=== PATIENT | female | born 1940 | race Caucasian/White ===

== ENCOUNTER → 2016-12-15 | Outpatient (CLI) | payer MEDICARE, BC ==
--- NOTE | 2016-12-16 08:40 | MM ---
Reason for exam: screening (asymptomatic). Last mammogram was performed 2 years and 1 month ago. History: Patient is postmenopausal and history of other cancer. Family history of breast cancer in sister at age 75. Physical Findings: A clinical breast exam by your physician is recommended on an annual basis and results should be correlated with mammographic findings. MG 3D Screening Mammo W/Cad Bilateral CC and MLO view(s) were taken. Prior study comparison: November 14, 2014, bilateral MG diagnostic mammo w CAD PATRICK. January 25, 2007, bilateral screening mammogram w/CAD. There are scattered fibroglandular densities. Finding: There is a 5 mm mass in the subareolar position of the right breast. ASSESSMENT: Incomplete: need additional imaging evaluation, BI-RAD 0 RECOMMENDATION: Special view mammogram of the right breast. If lesion persists on supplemental views, image directed ultrasound is recommended. [facility] will attempt to contact patient to return for supplemental views and ultrasound if indicated.
== END ==
LOC: RADMAMWWP 08:04
PROVIDERS: ATTEND Family Medicine
DX: Z12.31 Encounter for screening mammogram for malignant neoplasm of breast (principal)
CPT/HCPCS: 77063; G0202

== ENCOUNTER → 2016-12-17 | Outpatient (CLI) | payer MEDICARE, BC ==
--- NOTE | 2016-12-17 09:39 | MM ---
Reason for exam: additional evaluation requested from abnormal screening. Last mammogram was performed less than 1 month ago. History: Patient is postmenopausal and has history of other cancer at age 73. Family history of breast cancer in sister at age 75. Physical Findings: Nurse did not find any significant physical abnormalities on exam. MG 3D Work Up W/Cad RT Spot compression CC, spot compression MLO, and ML view(s) were taken of the right breast. Prior study comparison: December 15, 2016, bilateral MG 3d screening mammo w/cad. November 14, 2014, bilateral MG diagnostic mammo w CAD PATRICK. There are scattered fibroglandular densities. There is a persistent 3mm mass in the right breast lower outer quadrant. These results were verbally communicated with the patient and result sheet given to the patient on 12/17/16. ASSESSMENT: Incomplete: need additional imaging evaluation, BI-RAD 0 RECOMMENDATION: Ultrasound of the right breast.
--- NOTE | 2016-12-17 09:41 | USB ---
Reason for exam: additional evaluation requested from abnormal screening. History: Patient is postmenopausal and has history of other cancer at age 73. Family history of breast cancer in sister at age 75. US Breast Workup Limited RT Right breast ultrasound demonstrates a 0.2 x 0.3 x 0.2cm oval lesion too small to characterize at 10 o'clock. May represent small cyst, well defined posterior wall. Question posterior enhancement. These results were verbally communicated with the patient and result sheet given to the patient on 12/17/16. ASSESSMENT: Probably benign, BI-RAD 3 RECOMMENDATION: Ultrasound of the right breast in 6 months.
== END ==
LOC: RADMAMWWP 08:03
PROVIDERS: ATTEND Family Medicine
DX: R92.8 Other abnormal and inconclusive findings on diagnostic imaging of breast (principal)
CPT/HCPCS: 76642; G0206; G0279

== ENCOUNTER → 2018-01-07 | Outpatient (CLI) | payer MEDICARE, BC ==
--- NOTE | 2018-01-07 15:05 | MM ---
Reason for exam: additional evaluation requested from prior study. Last mammogram was performed 1 year and 1 month ago. History: Patient is postmenopausal and has history of other cancer at age 73. Family history of breast cancer in sister at age 75. Physical Findings: Nurse did not find any significant physical abnormalities on exam. MG 3D Diag Mammo W/Cad PATRICK Bilateral CC and MLO view(s) were taken. Prior study comparison: December 17, 2016, right breast MG 3d work up w/cad RT. December 15, 2016, bilateral MG 3d screening mammo w/cad. The breast tissue is heterogeneously dense. This may lower the sensitivity of mammography. There are benign appearing round calcifications bilaterally. There is chronic nodularity in the right breast. There is no discrete abnormality. These results were verbally communicated with the patient and result sheet given to the patient on 01/07/18. ASSESSMENT: Benign, BI-RAD 2 RECOMMENDATION: Routine screening mammogram of both breasts in 1 year.
== END | disposition home or self-care (01) ==
LOC: RADMAMWWP 13:16
PROVIDERS: ATTEND Physician Assistant
DX: R92.8 Other abnormal and inconclusive findings on diagnostic imaging of breast (principal)
CPT/HCPCS: 77066; G0279; 77062

== ENCOUNTER 2018-03-17 18:20 | Emergency (ER) | payer MEDICARE, BC ==
[2018-03-17] MEDS ORDERED: MORPHINE SULFATE 4 MG/ML SYRINGE IVP STA (19:09)
[2018-03-17] MEDS ORDERED: RX INFO: IV CONTRAST WAS GIVEN 1 EACH MISC MISCELLANE PRN (19:09)
[2018-03-17] MEDS ORDERED: ONDANSETRON 4 MG/2 ML VIAL IVP STA (19:09)
[2018-03-17 19:58] LABS: Basophils % (A) 0 %; Eosinophils # (A) 0.1 k/uL (0-0.7); Eosinophils % (A) 1 %; HCT 41.9 % (34.0-46.0); HGB 13.7 gm/dL (11.4-16.0); Lymphocytes # (A) 1.4 k/uL (1.0-4.8); Lymphocytes % (A) 12 %; MCH 31.1 pg (25.0-35.0); MCHC 32.7 g/dL (31.0-37.0); MCV 94.9 fL (80.0-100.0); Mean Platelet Volume 7.1; Monocytes # (A) 0.4 k/uL (0-1.0); Monocytes % (A) 3 %; Neutrophils # (A) 9.8 k/uL (1.3-7.7); Neutrophils % (A) 84 %; Platelet Count 272 k/uL (150-450); RBC 4.41 m/uL (3.80-5.40); RDW 12.8 % (11.5-15.5); WBC 11.7 k/uL (3.8-10.6)
--- NOTE | 2018-03-17 20:02 | ED ---
Extremity Problem HPI - General Source: patient, EMS Mode of arrival: EMS Limitations: no limitations <Dana Carballo - Last Filed: 03/17/18 22:28> <Kike Fernandes - Last Filed: 03/17/18 23:09> - General Chief complaint: Extremity Problem,Nontraumatic Stated complaint: Leg pain Time Seen by Provider: 03/17/18 18:42 - History of Present Illness Initial comments: 77-year-old female patient presents to the emergency department today for evaluation of right leg pain and paresthesia. Patient states that she was sitting on for about 30 minutes when she went to stand up today she had severe pain to the right foot and numbness and tingling sensation. Patient denies any history of similar symptoms. Patient states that she does have some discomfort into her thigh radiating down the leg to the foot. States that she has decreased sensation to the foot with this. She denies any known injury. Denies any back pain or history of sciatica. Denies any cough, nasal congestion , sore throat, abdominal pain, nausea, or vomiting. Denies any chest pain or shortness of breath. Patient denies any recent rash, dizziness, weakness, hematuria, dysuria, urinary urgency, urinary frequency, headache, visual changes , or any other complaints. (Dana Carballo) - Related Data Home Medications Medication Instructions Recorded Confirmed Aspirin EC [Ecotrin Low Dose] 81 mg PO DAILY 03/17/18 03/17/18 Atenolol/Chlorthalidone 1 tab PO DAILY 03/17/18 03/17/18 [Atenolol-Chlorthalidone 50-25] Ranitidine HCl 150 mg PO DAILY 03/17/18 03/17/18 Vitamin B With C(Unknown) 1 tab PO DAILY 03/17/18 03/17/18 Vitamin D(Unknown) 1 tab PO DAILY 03/17/18 03/17/18 amLODIPine BESYLATE/BENAZEPRIL 1 cap PO HS 03/17/18 03/17/18 [Lotrel 5-20 mg Capsule] Allergies Allergy/AdvReac Type Severity Reaction Status Date / Time No Known Allergies Allergy Verified 03/17/18 19:55 Review of Systems ROS Other: All systems not noted in ROS Statement are negative. <Dana Carballo - Last Filed: 03/17/18 22:28> ROS Other: All systems not noted in ROS Statement are negative. <Kike Fernandes - Last Filed: 03/17/18 23:09> ROS Statement: Those systems with pertinent positive or pertinent negative responses have been documented in the HPI. Past Medical History Past Medical History: GERD/Reflux, Hypertension History of Any Multi-Drug Resistant Organisms: None Reported Past Surgical History: Appendectomy, Cholecystectomy Past Psychological History: Depression Smoking Status: Never smoker Past Alcohol Use History: Rare Past Drug Use History: None Reported <Dana Carballo - Last Filed: 03/17/18 22:28> General Exam Limitations: no limitations General appearance: alert, in no apparent distress, other (This is a well- developed, well-nourished elderly female patient in mild distress related to pain. Vital signs upon presentation are temperature 100.0F, pulse 110, respirations 20, blood pressure 197/99, pulse ox 94% on room air.) Eye exam: Present: normal appearance, PERRL, EOMI. Absent: scleral icterus, conjunctival injection, periorbital swelling ENT exam: Present: normal exam, normal oropharynx, mucous membranes moist Respiratory exam: Present: wheezes (Diffuse expiratory wheezing). Absent: normal lung sounds bilaterally, respiratory distress, rales, rhonchi, stridor Cardiovascular Exam: Present: normal rhythm, tachycardia, normal heart sounds. Absent: systolic murmur, diastolic murmur, rubs, gallop, clicks GI/Abdominal exam: Present: soft, normal bowel sounds. Absent: distended, tenderness, guarding, rebound, rigid Extremities exam: Present: full ROM, normal capillary refill, other (Patient has pale, cold foot and lower extremity. Unable to palpate pedal and posttibial pulses are right foot. Unable to find pulses on Doppler.). Absent: normal inspection, tenderness, pedal edema, joint swelling, calf tenderness Neurological exam: Present: alert, oriented X3, CN II-XII intact Psychiatric exam: Present: normal affect, normal mood Skin exam: Present: warm, dry, intact, normal color. Absent: rash <Dana Carballo - Last Filed: 03/17/18 22:28> Course <Dana Carballo - Last Filed: 03/17/18 22:28> <Kike Fernandes - Last Filed: 03/17/18 23:09> Vital Signs 03/17/18 03/17/18 03/17/18 18:24 20:12 20:30 Temperature 100 F H Pulse Rate 110 H 113 H Respiratory 20 11 L Rate Blood Pressure 197/99 168/79 168/79 O2 Sat by Pulse 94 L 96 Oximetry 03/17/18 03/17/18 03/17/18 21:00 21:43 22:00 Temperature 98.1 F Pulse Rate 112 H 130 H Respiratory 13 17 Rate Blood Pressure 173/70 158/87 O2 Sat by Pulse 93 L 97 Oximetry 03/17/18 22:30 Temperature Pulse Rate 128 H Respiratory 21 Rate Blood Pressure 148/73 O2 Sat by Pulse 96 Oximetry - Reevaluation(s) Reevaluation #1: 03/17/18 21:59 I saw this patient in conjunction with the physician administrative assistant. I performed independent history and physical exam. Agree with case management. I did go and evaluate the patient following computed tomography scan and the nurse practitioner did accompany me. The patient's foot does appear to be somewhat improved from the initial exam, color is better and the patient has sensation and is able to move her toes. The pulse is still not palpated in the dorsalis pedis. Vascular surgeon is paged. Heparin started. (Kike Fernandes) Medical Decision Making - Lab Data Result diagrams: 03/17/18 19:42 03/17/18 19:42 - Radiology Data Radiology results: report reviewed, image reviewed <Dana Carballo - Last Filed: 03/17/18 22:28> - Lab Data Result diagrams: 03/17/18 19:42 03/17/18 19:42 <Kike Fernandes - Last Filed: 03/17/18 23:09> - Medical Decision Making 77-year-old female patient presents to the emergency department today for evaluation of right leg pain and foot numbness. Physical examination did reveal a pale cold foot with nonpalpable pulses. Was unable to find pulses by Doppler. Labs reviewed and were unremarkable. Patient was also found to be in new-onset atrial fibrillation with a heart rate of 114 on EKG however via telemetry heart rates, been to 130s. Patient was started on high-dose heparin. She started on Cardizem. She was given pain medication and does report improvement of symptoms upon reevaluation. My attending Dr. Fernandes was in to evaluate the patient. He discussed the case with the on-call vascular surgeon who recommends transfer to [facility]. (Dana Carballo) I saw this patient in conjunction with the physician administrative assistant. I performed independent history and physical exam. Agree with case management. Case discussed with Dr. House. As the patient has multiple levels of disease, she appears to require higher level of care. Dr. House I discussed the case with Dr. Davila at [facility] who will accept, and I discussed with the emergency department physician Dr. Watson. (Kike Fernandes) - Lab Data Lab Results 03/17/18 03/17/18 Range/Units 19:42 19:42 WBC 11.7 H (3.8-10.6) k/uL RBC 4.41 (3.80-5.40) m/uL Hgb 13.7 (11.4-16.0) gm/dL Hct 41.9 (34.0-46.0) % MCV 94.9 (80.0-100.0) fL MCH 31.1 (25.0-35.0) pg MCHC 32.7 (31.0-37.0) g/dL RDW 12.8 (11.5-15.5) % Plt Count 272 (150-450) k/uL Neutrophils % 84 % Lymphocytes % 12 % Monocytes % 3 % Eosinophils % 1 % Basophils % 0 % Neutrophils # 9.8 H (1.3-7.7) k/uL Lymphocytes # 1.4 (1.0-4.8) k/uL Monocytes # 0.4 (0-1.0) k/uL Eosinophils # 0.1 (0-0.7) k/uL Basophils # 0.0 (0-0.2) k/uL Sodium 140 (137-145) mmol/L Potassium 3.4 L (3.5-5.1) mmol/L Chloride 104 (98-107) mmol/L Carbon Dioxide 26 (22-30) mmol/L Anion Gap 10 mmol/L BUN 31 H (7-17) mg/dL Creatinine 0.99 (0.52-1.04) mg/dL Est GFR (CKD-EPI)AfAm 64 (>60 ml/min/1.73 sqM) Est GFR (CKD-EPI)NonAf 55 (>60 ml/min/1.73 sqM) Glucose 234 H (74-99) mg/dL Calcium 9.7 (8.4-10.2) mg/dL Magnesium 1.6 (1.6-2.3) mg/dL Total Bilirubin 0.4 (0.2-1.3) mg/dL AST 23 (14-36) U/L ALT 31 (9-52) U/L Alkaline Phosphatase 78 (38-126) U/L Total Protein 7.1 (6.3-8.2) g/dL Albumin 4.4 (3.5-5.0) g/dL TSH 4.110 (0.465-4.680) mIU/L - EKG Data EKG Comments: EKG obtained at 2000 shows atrial fibrillation with rapid ventricular response. Ventricular rate is 114, QRS duration is 68, QT 342, QTc 471. No evidence of ST elevation or depression (Dana Carballo) - Radiology Data CT angio right lower extremity was obtained. Report was reviewed in its entirety. Impression by Dr. Davidson shows to Center segment of subtotal occlusion of the proximal right femoral artery also involving the profunda femoris artery origin. Complete occlusion of the mid popliteal artery and proximal tibial artery. Diminished arterial flow and anterior tibial artery no lower leg. Two-view x-ray of the chest is obtained. There is no heart failure. There is worsening of the interstitial markings. There is no pleural effusion. There are chest leads. This no gross heart failure. Coarse lung markings without overt heart failure. There is probably cardiomegaly after Stuart (Dana Carballo) Disposition - Out of Hospital Transfer - Req. Specs Out of Hospital Transfer - Requested Specifics: Other Emergency Center ([facility]) <Dana Carballo - Last Filed: 03/17/18 22:28> <Kike Fernandes - Last Filed: 03/17/18 23:09> Clinical Impression: Arterial occlusion, lower extremity Narrative: Right (Dana Carballo) Disposition: OTHER INSTITUTION NOT DEFINED Condition: Serious Referrals: Rayo Banerjee MD [Primary Care Provider] - 1-2 days
[2018-03-17 20:08] LABS: Albumin 4.4 g/dL (3.5-5.0); Calcium 9.7 mg/dL (8.4-10.2); Potassium 3.4 mmol/L (3.5-5.1); Total Bilirubin 0.4 mg/dL (0.2-1.3); Total Protein 7.1 g/dL (6.3-8.2)
[2018-03-17 20:20] LABS: Magnesium 1.6 mg/dL (1.6-2.3)
[2018-03-17] MEDS ORDERED: DILTIAZEM 50 MG in SODIUM CHLORIDE 0.9% 40 ML IV SCH (20:30)
--- NOTE | 2018-03-17 21:23 | CT ---
EXAMINATION TYPE: CT angio lower extremity RT DATE OF EXAM: 03/17/2018 8:58 PM COMPARISON: HISTORY: right lower leg pain and numbness CT DLP: 1242.7 mGycm Automated exposure control for dose reduction was used. TECHNIQUE: Performed with IV Contrast, patient injected with 125 mL of Isovue 370. . Multiple axial sections were obtained from the diaphragm to the bottom of the right foot with intrave nous contrast. There are 3-D post processed images. FINDINGS: The abdominal aorta has normal size and contour. There is no evidence of abdominal aortic aneurysm or dissection. There is mild pleural reaction and atelectasis at the right lung base. There is small hi atal hernia. There is patency of the celiac artery and superior mesenteric artery. There is patency of the renal a rteries. There is patency of the iliac arteries. There is a 2 cm segment of subtotal occlusion of the proximal right femoral artery. The remainder of the right femoral artery is patent. There is complet e occlusion of the popliteal artery at the level of the femoral condyles. There are collateral vessel s and contrast opacification of the right tibial artery. There is patency of the anterior and posteri or tibial arteries and the peroneal artery. There is posterior tibial artery flow at the right ankle. I see no significant flow in the anterior tibial artery at the ankle. IMPRESSION: 2 CM SEGMENT OF SUBTOTAL OCCLUSION OF THE PROXIMAL RIGHT FEMORAL ARTERY ALSO INVOLVING THE PROFUNDA F EMORIS ARTERY ORIGIN. COMPLETE OCCLUSION OF THE MID POPLITEAL ARTERY AND PROXIMAL TIBIAL ARTERY. DIMINISHED ARTERIAL FLOW IN THE ANTERIOR TIBIAL ARTERY IN THE LOWER LEG.
--- NOTE | 2018-03-17 21:39 | XR ---
EXAMINATION TYPE: XR chest 2V DATE OF EXAM: 03/17/2018 COMPARISON: NONE HISTORY: Leg numbness TECHNIQUE: Frontal and lateral views of the chest are obtained. FINDINGS: There is no heart failure. There is coarsening of the interstitial markings. There is no p leural effusion. There are chest leads. There is no gross heart failure. IMPRESSION: Coarse lung markings without overt heart failure. There is probably mild cardiomegaly.
[2018-03-17 21:44] VITALS: TEMP 98.1
[2018-03-17] MEDS ORDERED: HEPARIN SODIUM,PORCINE 5,000 UNIT/ML 1 ML VIAL IV PRN (22:26)
[2018-03-17] MEDS ORDERED: HEPARIN SODIUM,PORCINE 5,000 UNIT/ML 1 ML VIAL IV ONE (22:26)
[2018-03-17] MEDS ORDERED: DILTIAZEM DRIP BOLUS FROM BAG 1 MG SOLN IV ONE (22:27)
[2018-03-17] MEDS ORDERED: HEPARIN SOD,PORK IN 0.45% NACL 25,000 UNIT in 0.45% NACL 1 250ML.BAG IV SCH (22:30)
[2018-03-17 23:08] VITALS: BP 149/80; PULSE 85; RESP 23
== END 2018-03-17 23:41 | disposition other institution (70) ==
LOC: EC 18:20
DX: I70.201 Unspecified atherosclerosis of native arteries of extremities, right leg (principal); I48.91 Unspecified atrial fibrillation; K21.9 Gastro-esophageal reflux disease without esophagitis; I10 Essential (primary) hypertension; Z79.82 Long term (current) use of aspirin; Z79.899 Other long term (current) drug therapy
CPT/HCPCS: 36415; 93005; 80053; 84443; 83735; 85025; 87040; 71046; 73706; 99285; 96365; 96366 ×2; 96368; 96375 ×2; 96376 ×2; J2270; J1644 ×2; J2405; Q9967

== ENCOUNTER → 2018-04-27 | Outpatient (CLI) | payer MEDICARE, BC ==
--- NOTE | 2018-04-27 16:10 | CT ---
EXAMINATION TYPE: CT brain wo/w con DATE OF EXAM: 04/27/2018 COMPARISON: None HISTORY: 77-year-old female with dysarthria and anarthria, confusion, slurred speech TECHNIQUE: Examination was done in axial plane without intravenous contrast. Coronal and sagittal r econstructions performed. CT DLP: 2143 mGycm Automated exposure control for dose reduction was used. FINDINGS: There is no evidence of acute intracranial hemorrhage, acute ischemic changes, mass, mass-effect, or extra-axial fluid collection. There is no effacement of cerebral sulci or basal subarachnoid cister ns. There is no hydrocephalus. There is no midline shift. Waters-white matter distinction is preserv ed. [id number] cerebral cortical atrophy. Prominent prostatic calcifications in the carotid siphons . Postcontrast series shows no enhancing intracranial lesions. Dural venous sinuses are patent. There s eems to be persistent origin of the right posterior cerebral artery. Orbits and globes are intact. Leftward nasal septal deviation. Paranasal sinuses and mastoid air cell s are pneumatized. 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 No acute intracranial abnormality or enhancing intracrani al lesions seen.
== END | disposition home or self-care (01) ==
LOC: RADCTMAIN 14:20
PROVIDERS: ATTEND Family Medicine
DX: G31.9 Degenerative disease of nervous system, unspecified (principal)
CPT/HCPCS: 82565; 84520; 70470; 36415; Q9967

== ENCOUNTER 2020-03-12 08:56 | Emergency (ER) | payer BC, MEDICARE ==
[2020-03-12 09:04] VITALS: TEMP 98.4
--- NOTE | 2020-03-12 09:37 | ED ---
General Adult HPI - General Chief complaint: Extremity Problem,Nontraumatic Stated complaint: Difficulty Walking Time Seen by Provider: 03/12/20 09:08 Source: patient, RN notes reviewed Mode of arrival: wheelchair Limitations: no limitations - History of Present Illness Initial comments: Patient is a 79-year-old female presented to the emergency room today with a chief complaint of pain to the right ankle. She does with that started approximately 2 weeks ago. She does admit that it's worse when she tries to bear weight and weight. Denies any injury or trauma. Admits to history of a DVT in the past is currently on Eliquis. States he was asleep and was affect. Patient does admit that she went to the hospital approximately one week ago had an ultrasound obtained which was negative. Patient states she still expressing pain and discomfort to the lateral aspect of the right ankle area. Denies any swelling, redness. She denies any known injury. Denies any other concerning symptoms. Patient denies any recent fever, chills, shortness of breath, chest pain, back pain, abdominal pain, nausea or vomiting,headaches or visual changes, or any other complaints. - Related Data Home Medications Medication Instructions Recorded Confirmed Aspirin EC [Ecotrin Low Dose] 81 mg PO DAILY 03/17/18 03/17/18 Atenolol/Chlorthalidone 1 tab PO DAILY 03/17/18 03/17/18 [Atenolol-Chlorthalidone 50-25] Ranitidine HCl 150 mg PO DAILY 03/17/18 03/17/18 Vitamin B With C(Unknown) 1 tab PO DAILY 03/17/18 03/17/18 Vitamin D(Unknown) 1 tab PO DAILY 03/17/18 03/17/18 amLODIPine BESYLATE/BENAZEPRIL 1 cap PO HS 03/17/18 03/17/18 [Lotrel 5-20 mg Capsule] Allergies Allergy/AdvReac Type Severity Reaction Status Date / Time amlodipine Allergy Unknown Verified 03/12/20 09:06 benazepril Allergy Unknown Verified 03/12/20 09:06 terazosin Allergy Unknown Verified 03/12/20 09:06 Review of Systems ROS Statement: Those systems with pertinent positive or pertinent negative responses have been documented in the HPI. ROS Other: All systems not noted in ROS Statement are negative. Past Medical History Past Medical History: Diabetes Mellitus, Deep Vein Thrombosis (DVT), GERD/Reflux, Hypertension History of Any Multi-Drug Resistant Organisms: None Reported Past Surgical History: Appendectomy, Cholecystectomy Past Psychological History: Depression Smoking Status: Never smoker Past Alcohol Use History: Rare Past Drug Use History: None Reported General Exam - General Exam Comments Initial Comments: General: The patient is awake and alert, in no distress, and does not appear acutely ill. Eye: extra-ocular movements are intact. No nystagmus. There is normal conjunctiva bilaterally. No signs of icterus. Cardiovascular: There is a regular rate and rhythm. No murmur, rub or gallop is appreciated. Respiratory: Lungs are clear to auscultation, respirations are non-labored, breath sounds are equal. No wheezes, stridor, rales, or rhonchi. Musculoskeletal: Patient has normal appearance of her lower leg with no obvious deformity. No redness or swelling. Pulses 2+. Sensations are intact. Minimal to no tenderness on palpation to the lateral aspect of the right ankle and foot area. Shows good range of motion and all areas. Strength is 5/5. Neurological: A&O x 3. CN II-XII intact, There are no obvious motor or sensory deficits. Coordination appears grossly intact. Speech is normal. Skin: Skin is warm and dry and no rashes or lesions are noted. Psychiatric: Cooperative, appropriate mood & affect, normal judgment. Limitations: no limitations Course Vital Signs 03/12/20 08:57 Temperature 98.4 F Pulse Rate 98 Respiratory 16 Rate Blood Pressure 153/75 O2 Sat by Pulse 98 Oximetry Medical Decision Making - Medical Decision Making Patient is x-ray was reviewed is sugar acute fracture dislocation. Did show possible ligamentous injury. Patient ultrasound is negative for any acute DVT. Results were discussed with patient. Patient given Yves wrap in emergency room and advised to follow-up with orthopedics. Advised to continue to ice elevate the affected area and use Tylenol for pain. Advised return if any symptoms increase or worsen or for any other concerns. She states understanding and is agreement. Disposition Clinical Impression: Ankle pain, right Disposition: HOME SELF-CARE Condition: Stable Additional Instructions: Please continue ice elevate the affected area and use Yves wrap when up moving around. Please do not sleep with Yves wrap on. Follow-up orthopedics over the next 2-5 days. Return here to emergency room for any symptoms increase or worsen or fail concerns. Is patient prescribed a controlled substance at d/c from ED?: No Referrals: Rayo Banerjee MD [Primary Care Provider] - 1-2 days Stanislav Porter MD [Medical Doctor] - 1-2 days Time of Disposition: 10:51
--- NOTE | 2020-03-12 09:38 | XR ---
EXAMINATION TYPE: XR ankle complete RT DATE OF EXAM: 03/12/2020 CLINICAL HISTORY: Pain. TECHNIQUE: Frontal, lateral and oblique images of the right ankle are obtained. COMPARISON: None. FINDINGS: There is no acute fracture/dislocation evident in the right ankle. Mild spurring from the medial and lateral malleoli. The ankle mortise shows asymmetry with lateral widening suggesting poss ible ligamentous injury. Small to moderate size inferior calcaneal spur noted. The overlying soft ti ssue appears unremarkable. IMPRESSION: As above.
--- NOTE | 2020-03-12 10:18 | US ---
EXAMINATION TYPE: US venous doppler duplex LE RT DATE OF EXAM: 03/12/2020 10:12 AM COMPARISON: NONE CLINICAL HISTORY: pain. Right leg pain x couple weeks, history of DVT, patient on 2 blood thinners. SIDE PERFORMED: Right TECHNIQUE: The lower extremity deep venous system is examined utilizing real time linear array sonog kathya with graded compression, doppler sonography and color-flow sonography. VESSELS IMAGED: Common Femoral Vein Deep Femoral Vein Greater Saphenous Vein * Femoral Vein Popliteal Vein Small Saphenous Vein * Proximal Calf Veins (* superficial vessels) Right Leg: Appears negative for DVT Grayscale, color doppler, spectral doppler imaging performed of the deep veins of the right lower ext remity. There is normal flow, compressibility, vascular waveforms. IMPRESSION: No ultrasound evidence for acute DVT in the right lower extremity.
[2020-03-12 11:16] VITALS: BP 147/69; PULSE 88; RESP 18
== END 2020-03-12 11:20 | disposition home or self-care (01) ==
LOC: EC 08:56
DX: M25.571 Pain in right ankle and joints of right foot (principal); R26.2 Difficulty in walking, not elsewhere classified; K21.9 Gastro-esophageal reflux disease without esophagitis; I10 Essential (primary) hypertension; Z79.82 Long term (current) use of aspirin; Z79.01 Long term (current) use of anticoagulants; Z79.899 Other long term (current) drug therapy; Z88.8 Allergy status to other drugs, medicaments and biological substances; Z86.718 Personal history of other venous thrombosis and embolism
CPT/HCPCS: 99284

== ENCOUNTER → 2020-05-11 | Outpatient (CLI) | payer MEDICARE ==
--- NOTE | 2020-05-11 19:18 | NM ---
EXAMINATION TYPE: NM bone scan whole body DATE OF EXAM: 05/11/2020 COMPARISON: NONE HISTORY: Right tibia and fibula pain for 3 months Delayed whole-body scanning was performed following the injection of 23.2 mCi Tc 99m MDP. Images acq uired 3 hours post injection. FINDINGS: Abnormal uptake is seen involving the distal right tibia and within the feet and toes bilat erally. Normal uptake involving the knees is seen bilaterally. 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 In tensities of mild uptake involving these structures. Abnormal uptake involving the sternoclavicular joints and shoulders bilaterally likely post arthritic . Abnormal uptake involving the thoracic spine and lower lumbar spine nonspecific but likely degenerati ve IMPRESSION: 1. Abnormal uptake involving the distal right tibia is a faint or mild uptake in likely chronic relat ed to previous trauma or post arthritic. 2. 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 3. Findings involving the vertebral column likely degenerative.
== END | disposition home or self-care (01) ==
LOC: RADNMMAIN 10:26
PROVIDERS: ATTEND Family Medicine
DX: R93.7 Abnormal findings on diagnostic imaging of other parts of musculoskeletal system (principal); M89.8X9 Other specified disorders of bone, unspecified site
CPT/HCPCS: 78306; A9503

== ENCOUNTER 2024-07-05 08:29 | Observation (INO) | payer MEDICARE ==
--- NOTE | 2024-07-05 09:04 | ED ---
General Adult HPI - General Chief complaint: Headache Stated complaint: confusion,SOB Time Seen by Provider: 07/05/24 08:41 Source: patient Mode of arrival: wheelchair Limitations: no limitations - History of Present Illness Initial comments: Dictation was produced using [employer] dictation software. please excuse any grammatical, word or spelling errors. Chief Complaint: 83-year-old female presents with hypertension History of Present Illness: 83-year-old female presents to the emergency department chief complaint of hypertension. Patient states that she has been feeling this way for the last week or so. She checked her blood pressure this morning with elevated blood pressures with systolics above 200. She states that she had some of her blood pressure medications adjusted recently. For the past 3 to 4 weeks she has had a slight headache. She does report a history of migraines. Denies any chest pain shortness of breath. No extremity pain. Patient takes anticoagulation medication for DVT prophylaxis. She denies any cardiac conditions. The ROS documented in this emergency department record has been reviewed and confirmed by me. Those systems with pertinent positive or negative responses have been documented in the HPI. All other systems are other negative and/or noncontributory. - Related Data Home Medications Medication Instructions Recorded Confirmed Apixaban [Eliquis] 5 mg PO BID 07/05/24 07/05/24 Escitalopram [Lexapro] 10 mg PO DAILY 07/05/24 07/05/24 Metoprolol Tartrate [Lopressor] 100 mg PO BID 07/05/24 07/05/24 allopurinoL 100 mg PO DAILY 07/05/24 07/05/24 amLODIPine/ATORVASTATIN 1 tab PO DAILY 07/05/24 07/05/24 [amLODIPine/ATORVASTATIN 5-40 MG] metFORMIN HCL 500 mg PO BID 07/05/24 07/05/24 traZODone HCL [Desyrel] 25 mg PO HS 07/05/24 07/05/24 Allergies Allergy/AdvReac Type Severity Reaction Status Date / Time amlodipine Allergy Unknown Verified 07/05/24 08:36 benazepril Allergy Unknown Verified 07/05/24 08:36 terazosin Allergy Unknown Verified 07/05/24 08:36 Review of Systems ROS Statement: Those systems with pertinent positive or pertinent negative responses have been documented in the HPI. ROS Other: All systems not noted in ROS Statement are negative. Past Medical History Past Medical History: Diabetes Mellitus, Deep Vein Thrombosis (DVT), GERD/Reflux, Hypertension History of Any Multi-Drug Resistant Organisms: None Reported Past Surgical History: Appendectomy, Cholecystectomy Past Psychological History: Depression Smoking Status: Never smoker Past Alcohol Use History: Rare Past Drug Use History: None Reported General Exam - General Exam Comments Initial Comments: PHYSICAL EXAM: General Impression: Alert and oriented x3, not in acute distress HEENT: Normocephalic atraumatic, extra-ocular movements intact, pupils equal and reactive to light bilaterally, mucous membranes moist. Cardiovascular: Irregularly irregular Chest: Able to complete full sentences, no retractions, no tachypnea Abdomen: abdomen soft, non-tender, non-distended, no organomegaly Musculoskeletal: Pulses present and equal in all extremities, no peripheral edema Motor: no focal deficits noted Neurological: CN II-XII grossly intact, no focal motor or sensory deficits noted Skin: Intact with no visualized rashes Psych: Normal affect and mood Limitations: no limitations Course Vital Signs 07/05/24 08:33 Temperature 97.9 F Pulse Rate 85 Respiratory 16 Rate Blood Pressure 181/79 O2 Sat by Pulse 97 Oximetry EKG Findings - EKG Comments: EKG Findings:: My EKG interpretation: Ventricular rate 74, A-flutter, QRS 80, QTc 430. No QTC prolongation, no ST or T-wave changes noted. EKG consistent with new onset a flutter Medical Decision Making - Medical Decision Making Was pt. sent in by a medical professional or institution (, [facility], [facility], urgent care, hospital, or penitentiary...) When possible be specific @ -No Did you speak to anyone other than the patient for history (EMS, parent, family, police, friend...)? What history was obtained from this source @ -See above. Case discussed with family at the bedside Did you review nursing and triage notes (agree or disagree)? Why? @ -I reviewed and agree with nursing and triage notes Were old charts reviewed (outside hosp., previous admission, EMS record, old EKG, old radiological studies, urgent care reports/EKG's, penitentiary records)? Report findings @ -No old charts were reviewed Differential Diagnosis (chest pain, altered mental status, abdominal pain women, abdominal pain men, vaginal bleeding, musculoskeletal, weakness, fever, dyspnea, syncope, headache, dizziness, GI bleed, back pain, seizure, CVA, palpatations, mental health)? @ - Differential Palpitations: Ventricular arrhythmias, atrial arrhythmias, myocardial infarction, anemia, thyrotoxicosis, electrolyte imbalance, hypokalemia, pulmonary embolism, pulmonary disease, drugs, alcohol, anxiety, stress.... This is not meant to be an all-inclusive list. EKG interpreted by me (3pts min.). @ -See above X-rays interpreted by me (1pt min.). @ -Chest x-ray is nonacute CT interpreted by me (1pt min.). @ -CT brain shows no acute processes U/S interpreted by me (1pt. min.). @ -None done What testing was considered but not performed or refused? (CT, X-rays, U/S, labs)? Why? @ -None What meds were considered but not given or refused? Why? @ -None Was smoking cessation discussed for >3mins.? @ -No Were there social determinants of health that impacted care today? How? (Homelessness, low income, unemployed, alcoholism, drug addiction, transportation, low edu. Level, literacy, decrease access to med. care, usp, rehab)? @ -No Was there de-escalation of care discussed even if they declined (Discuss DNR or withdrawal of care, Hospice)? DNR status @ -No What co-morbidities impacted this encounter? (DM, HTN, Smoking, COPD, CAD, Cancer, CVA, ARF, Chemo, Hep., AIDS, mental health diagnosis, sleep apnea, morbid obesity)? @ -None Was patient admitted / discharged? Hospital course, mention meds given and route, prescriptions, significant lab abnormalities, going to OR and other pertinent info. @ -83-year-old female presents emergency department chief complaint of hypertension. Patient well-appearing at the bedside. Vital signs are stable. EKG interestingly shows new onset atrial flutter. Patient will have centimeter mild accelerations when talking. However mostly rate controlled. Laboratory evaluation shows findings within acceptable limits except for magnesium of 1.4. Patient given mag oxide. Case discussed with hospitalist for admission. Diagnosis is new onset a flutter. Did you discuss the management of the patient with other professionals (professionals i.e. , PA, [facility], lab, RT, psych nurse, social media project manager, worsted winder, teacher, medical corps officer, nurse case manager)? Give summary @ -See above Was critical care preformed (if so, how long)? @ -No Undiagnosed new problem with uncertain prognosis? @ -No Drug Therapy requiring intensive monitoring for toxicity (Heparin, Nitro, Insulin, Cardizem)? @ -No Were any procedures done? @ -No Diagnosis/symptom? Acute, or Chronic, or Acute on Chronic? Uncomplicated (without systemic symptoms) or Complicated (systemic symptoms)? @ -New onset a flutter Side effects of treatment? @ -No Exacerbation, Progression, or Severe Exacerbation? @ -No Poses a threat to life or bodily function? How? (Chest pain, [place], [place], pneumonia, PE, COPD, DKA, ARF, appy, cholecystitis, CVA, Diverticulitis, Homicidal, Suicidal, threat to staff... and all critical care pts) @ -yes - Lab Data Result diagrams: 07/05/24 09:11 07/05/24 09:11 Lab Results 07/05/24 07/05/24 07/05/24 Range/Units 09:11 09:11 09:11 WBC 8.23 (4.50-10.00) 10*3/uL RBC 3.83 L (4.10-5.20) 10*6/uL Hgb 12.4 (12.0-15.0) g/dL Hct 36.9 L (37.2-46.3) % MCV 96.3 (80.0-97.0) fL MCH 32.4 H (27.0-32.0) pg MCHC 33.6 (32.0-37.0) g/dL Plt Count 261 (140-440) 10*3/uL MPV 9.8 (9.5-12.2) fL Immature Gran % (Auto) 0.4 % Neutrophils % 75.7 % Lymphocytes % 15.2 % Monocytes % 6.2 % Eosinophils % 2.1 % Basophils % 0.4 % Immature Gran # 0.03 (0.00-0.04) 10*3/uL Neutrophils # 6.24 (1.80-7.70) 10*3/uL Lymphocytes # 1.25 (0.90-5.00) 10*3/uL Monocytes # 0.51 (0.20-1.00) 10*3/uL Eosinophils # 0.17 (0.04-0.35) 10*3/uL Basophils # 0.03 (0.00-0.10) 10*3/uL PT 10.8 (10.0-12.5) sec INR 1.0 (<1.2) APTT 24.2 (22.0-30.0) sec Sodium 137 (137-145) mmol/L Potassium 4.4 (3.5-5.1) mmol/L Chloride 108 H (98-107) mmol/L Carbon Dioxide 23 (22-30) mmol/L Anion Gap 6 mmol/L BUN 17 (7-17) mg/dL Creatinine 0.77 (0.52-1.04) mg/dL Est GFR (CKD-EPI)AfAm 83 (>60 ml/min/1.73 sqM) Est GFR (CKD-EPI)NonAf 72 (>60 ml/min/1.73 sqM) Glucose 148 H (74-99) mg/dL Calcium 9.9 (8.4-10.2) mg/dL Magnesium 1.4 L (1.6-2.3) mg/dL Total Bilirubin 1.0 (0.2-1.3) mg/dL AST 25 (14-36) U/L ALT 24 (4-34) U/L Alkaline Phosphatase 73 (38-126) U/L Troponin I (0.000-0.034) ng/mL Total Protein 6.6 (6.3-8.2) g/dL Albumin 4.1 (3.5-5.0) g/dL 07/05/24 Range/Units 09:11 WBC (4.50-10.00) 10*3/uL RBC (4.10-5.20) 10*6/uL Hgb (12.0-15.0) g/dL Hct (37.2-46.3) % MCV (80.0-97.0) fL MCH (27.0-32.0) pg MCHC (32.0-37.0) g/dL Plt Count (140-440) 10*3/uL MPV (9.5-12.2) fL Immature Gran % (Auto) % Neutrophils % % Lymphocytes % % Monocytes % % Eosinophils % % Basophils % % Immature Gran # (0.00-0.04) 10*3/uL Neutrophils # (1.80-7.70) 10*3/uL Lymphocytes # (0.90-5.00) 10*3/uL Monocytes # (0.20-1.00) 10*3/uL Eosinophils # (0.04-0.35) 10*3/uL Basophils # (0.00-0.10) 10*3/uL PT (10.0-12.5) sec INR (<1.2) APTT (22.0-30.0) sec Sodium (137-145) mmol/L Potassium (3.5-5.1) mmol/L Chloride (98-107) mmol/L Carbon Dioxide (22-30) mmol/L Anion Gap mmol/L BUN (7-17) mg/dL Creatinine (0.52-1.04) mg/dL Est GFR (CKD-EPI)AfAm (>60 ml/min/1.73 sqM) Est GFR (CKD-EPI)NonAf (>60 ml/min/1.73 sqM) Glucose (74-99) mg/dL Calcium (8.4-10.2) mg/dL Magnesium (1.6-2.3) mg/dL Total Bilirubin (0.2-1.3) mg/dL AST (14-36) U/L ALT (4-34) U/L Alkaline Phosphatase (38-126) U/L Troponin I <0.012 (0.000-0.034) ng/mL Total Protein (6.3-8.2) g/dL Albumin (3.5-5.0) g/dL Disposition Clinical Impression: New onset atrial flutter Disposition: ADMITTED IP TO THIS HOSP Condition: Fair Referrals: Rayo Banerjee MD [Primary Care Provider] - 1-2 days Decision Time: 09:45
[2024-07-05 09:16] LABS: Basophils # (A) 0.03 10*3/uL (0.00-0.10); Basophils % (A) 0.4 %; Eosinophils # (A) 0.17 10*3/uL (0.04-0.35); Eosinophils % (A) 2.1 %; HCT 36.9 % (37.2-46.3); HGB 12.4 g/dL (12.0-15.0); Lymphocytes # (A) 1.25 10*3/uL (0.90-5.00); Lymphocytes % (A) 15.2 %; MCH 32.4 pg (27.0-32.0); MCHC 33.6 g/dL (32.0-37.0); MCV 96.3 fL (80.0-97.0); Mean Platelet Volume 9.8 fL (9.5-12.2); Monocytes # (A) 0.51 10*3/uL (0.20-1.00); Monocytes % (A) 6.2 %; Neutrophils # (A) 6.24 10*3/uL (1.80-7.70); Neutrophils % (A) 75.7 %; Platelet Count 261 10*3/uL (140-440); RBC 3.83 10*6/uL (4.10-5.20); RDW 12.8 % (11.5-14.5); WBC 8.23 10*3/uL (4.50-10.00)
[2024-07-05 09:30] LABS: Partial Thromboplastin Time 24.2 sec (22.0-30.0); Prothrombin Time 10.8 sec (10.0-12.5)
[2024-07-05 09:34] LABS: ALT 24 U/L (4-34); AST 25 U/L (14-36); African American GFR (CKD) 83 (>60 ml/min/1.73 sqM); Albumin 4.1 g/dL (3.5-5.0); Alkaline Phosphatase 73 U/L (38-126); Anion Gap 6 mmol/L; Blood Urea Nitrogen 17 mg/dL (7-17); Calcium 9.9 mg/dL (8.4-10.2); Carbon Dioxide 23 mmol/L (22-30); Chloride 108 mmol/L (98-107); Glucose 148 mg/dL (74-99); Magnesium 1.4 mg/dL (1.6-2.3); Non-African American GFR(CKD) 72 (>60 ml/min/1.73 sqM); Potassium 4.4 mmol/L (3.5-5.1); Sodium 137 mmol/L (137-145); Total Protein 6.6 g/dL (6.3-8.2)
--- NOTE | 2024-07-05 09:34 | CT ---
EXAMINATION TYPE: CT brain wo con DATE OF EXAM: 07/05/2024 9:18 AM COMPARISON: 04/27/2018 CLINICAL INDICATION: Female, 83 years old with history of persistent headache, HEADACHE, TECHNIQUE: Examination was done in axial plane without intravenous contrast. Coronal and sagittal r econstructions performed. CT DLP: 1111.4 mGycm, Automated exposure control for dose reduction was used. FINDINGS: There is no evidence of acute intracranial hemorrhage, acute ischemic changes, mass, mass-effect, or extra-axial fluid collection. There is no effacement of cerebral sulci or basal subarachnoid cister ns. There is no hydrocephalus. There is no midline shift. Waters-white matter distinction is preserv ed. Similar mild volume loss overlying the bilateral cerebral convexities. Unchanged patchy white matter hypodensities in the subinsular regions and old lacunar infarcts in the basal ganglia. Atheroscleroti c calcifications in the carotid siphons Slight leftward nasal septal deviation. Paranasal sinuses and mastoid air cells well pneumatized. Orb its and globes appear intact. IMPRESSION: Stable mild cerebral atrophy and patchy regions of chronic small vessel ischemic disease in the basal ganglia/subinsular regions. No acute intracranial abnormality seen. [facility], , 07/05/2024 9:32 AM
--- NOTE | 2024-07-05 09:35 | XR ---
EXAMINATION TYPE: XR chest 2V DATE OF EXAM: 07/05/2024 9:21 AM COMPARISON: 03/17/2018 CLINICAL INDICATION: Female, 83 years old with history of dysrhythmia, , TECHNIQUE: AP and lateral views FINDINGS: Heart borderline to mildly enlarged. Interstitial density. Trace pleural effusions. Hyperinflation. N o ambreen consolidation. IMPRESSION: Correlate for mild CHF with pulmonary vascular congestion. Trace pleural effusions. Possible backgrou nd COPD. [facility], , 07/05/2024 9:33 AM
[2024-07-05] MEDS ORDERED: NALOXONE 0.4 MG/ML 1 ML VIAL IV PRN (10:09)
[2024-07-05] MEDS: MAGNESIUM OXIDE 400 MG TAB PO STA (10:21)
[2024-07-05] MEDS: SODIUM CHLORIDE 0.9% 1,000 ML IV SCH (10:22)
--- NOTE | 2024-07-05 12:16 | P.HPIM ---
History of Present Illness H&P Date: 07/05/24 Patient is a 83-year-old male with aye-okfelkk-jtzlyeaek diabetes mellitus, history of DVT anticoagulated on Eliquis, hypertension presenting with new onset atrial flutter. Patient states she measured her blood pressure at home and saw that it was elevated at 190/95. She states she has not been feeling well for the past 2 weeks. She has complaint of headache that has been going on for the past month. She states she has felt fatigued and feels foggy. She mentions that she finds it difficult to walk to her mailbox in the morning because she feels so tired. Denies any shortness of breath, PND, orthopnea. Patient's daughter informed that she was mistakenly taken her trazodone in the morning instead of night possibly causing her to feel drowsy during the day. During the interview she denies any headache, vision changes, lightheadedness. In reviewing her medications she states that some of her blood pressure medications have been adjusted. According to her most current medication list her chlorthalidone and lisinopril have been discontinued. Patient denies any fever, chills, chest pain, abdominal pain, urinary symptoms, any changes in appetite, weight loss. Social history: Tobacco: Never smoker Alcohol: Denies alcohol use Recreational drugs: Denies illicit drug use ED documentation reviewed. Review of systems: Pertinent positives and negatives as discussed in HPI, a complete review of systems was performed and all other systems are negative. Physical examination: Vital signs: T 97.9 F, IA 85, RR 16, BP 181/79, O2 saturation 97% on room air General: non toxic, no distress, appears at stated age Derm: no unusual rashes/lesions, warm Head: atraumatic, normocephalic, symmetric Eyes: EOMI, anicteric sclera, pupils equal round reactive to light ENT: Nose and ears atraumatic Cardiovascular: S1S2 reg, no murmur, positive dorsalis pedis pulse bilateral, no edema, no JVD Lungs: CTA bilateral, no rhonchi, no rales, no accessory muscle use Abdominal: soft, nontender to palpation, no guarding Ext: muscle strength 5 out of 5 in all 4 extremities grossly, no gross muscle atrophy Neuro: CN II-XI grossly intact, no gross focal neuro deficits Psych: Alert, oriented to person, place, and time Labs: Troponin < 0.012, magnesium 1.4, glucose 148, Hgb 12.4, INR 1.0, TSH 2.14 Imaging: EKG independently interpreted displaying atrial flutter, rate 74 bpm, QTc 430 MS, low voltage, no ST abnormalities CXR independently interpreted displaying pulmonary vascular congestion, small bilateral pleural effusion Brain CT displaying stable mild cerebral atrophy and patchy regions of chronic small vessel ischemic disease in the basal ganglia/subinsular regions, no acute abnormality seen Assessment/Plan: Patient is a 83-year-old male with fyn-ggdegpv-ofqzapkby diabetes mellitus, history of DVT anticoagulated on Eliquis, hypertension presenting with new onset atrial flutter. #. Paroxysmal versus persistent versus permanent atrial fibrillation/atrial flutter, suspect permanent #. Elevated BNP Continue Metropol tartrate 100 mg PO BID Continue Eliquis 5 mg PO BID Monitor electrolytes, keep K > 4, Mg > 2 TSH and proBNP ordered Cardiac telemetry Echocardiogram pending Strict intake outtake #. Hypertensive urgency Clonidine 0.1 mg PO TID prn for BP > 180/120 Continue amlodipine 5 mg PO QD Will give 50 mg losartan now and follow up BP in 4hr, if BP normal can discharge with cardiology outpt follow up Increase losartan to 100 mg daily Echocardiogram as above #. Hypomagnesia 400 mg PO magnesium oxide given by ED, repeat Mg #. Ict-abqgyrw-kkjelouab diabetes mellitus Insulin sliding scale SQ Accu-Cheks ACHS Monitor for hypoglycemia Hold metformin #. Depression: Lexapro 10 mg PO QD #. Hyperlipidemia: Atorvastatin 40 mg PO QD #. Gout: Allopurinol 100 mg p.o. daily #. History of DVT: Eliquis 5 mg PO BID DVT prophylaxis: Eliquis 5 mg PO BID The patient is admitted with an anticipated less than 2 midnight stay for evaluation of new onset atrial flutter. CODE STATUS: Full code Discussed with: Patient Anticipated discharge place: Pending clinical course Aquiles Casey MD PGY-1 IM Dictation was produced using [employer] dictation software. please excuse any gr ammatical, word or spelling errors. I saw and evaluated the patient during the chowdary and critical portions of this encounter, and discussed the case in detail with the resident author of this note, I agree with the Assessment and Plan, and my changes, if any, are highlighted in blue. Past Medical History Past Medical History: Diabetes Mellitus, Deep Vein Thrombosis (DVT), GERD/Reflux, Hypertension History of Any Multi-Drug Resistant Organisms: None Reported Past Surgical History: Appendectomy, Cholecystectomy Past Psychological History: Depression Smoking Status: Never smoker Past Alcohol Use History: Rare Past Drug Use History: None Reported Medications and Allergies Home Medications Medication Instructions Recorded Confirmed Type Apixaban [Eliquis] 5 mg PO BID 07/05/24 07/05/24 History Chlorthalidone [Thalitone] 15 mg PO DAILY 07/05/24 07/05/24 History Escitalopram [Lexapro] 10 mg PO DAILY 07/05/24 07/05/24 History Metoprolol Tartrate [Lopressor] 100 mg PO BID 07/05/24 07/05/24 History allopurinoL 100 mg PO DAILY 07/05/24 07/05/24 History amLODIPine/ATORVASTATIN 1 tab PO DAILY 07/05/24 07/05/24 History [amLODIPine/ATORVASTATIN 5-40 MG] lisinopriL 40 mg PO DAILY 07/05/24 07/05/24 History metFORMIN HCL 500 mg PO BID 07/05/24 07/05/24 History traZODone HCL [Desyrel] 25 mg PO HS 07/05/24 07/05/24 History Allergies Allergy/AdvReac Type Severity Reaction Status Date / Time amlodipine Allergy Unknown Verified 07/05/24 08:36 benazepril Allergy Unknown Verified 07/05/24 08:36 terazosin Allergy Unknown Verified 07/05/24 08:36 Physical Exam Osteopathic Statement: *. No significant issues noted on an osteopathic structural exam other than those noted in the History and Physical/Consult. Vitals: Vital Signs Temp Pulse Resp BP Pulse Ox 07/05/24 08:33 97.9 F 85 16 181/79 97 Intake and Output 07/04/24 07/05/24 07/05/24 22:59 06:59 14:59 Other: Weight 68.039 kg Results CBC & Chem 7: 07/05/24 09:11 07/05/24 09:11 Labs: Abnormal Lab Results - Last 24 Hours (Table) 07/05/24 07/05/24 Range/Units 09:11 09:11 RBC 3.83 L (4.10-5.20) 10*6/uL Hct 36.9 L (37.2-46.3) % MCH 32.4 H (27.0-32.0) pg Chloride 108 H (98-107) mmol/L Glucose 148 H (74-99) mg/dL Magnesium 1.4 L (1.6-2.3) mg/dL
[2024-07-05] MEDS: MAGNESIUM SULFATE-D5W PMX 1 GM in DEXTROSE/WATER 1 100ML.BAG IVPB SCH (12:29)
[2024-07-05] MEDS: INSULIN LISPRO (HumaLOG) 100 UNIT/ML 10 mL VL SQ SCH (12:31)
[2024-07-05] MEDS: LOSARTAN 50 MG TAB PO STA ×2 (12:34→14:28)
[2024-07-05 12:39] LABS: Glucose,Whole Blood 141 mg/dL (70-110)
[2024-07-05] MEDS: amLODIPine 5 MG TAB PO STA (14:28)
[2024-07-05] MEDS: ACETAMINOPHEN TAB 325 MG TAB PO PRN (14:28)
[2024-07-05] MEDS: cloNIDine HCL 0.1 MG TAB PO PRN (16:37)
[2024-07-05 17:03] LABS: Glucose,Whole Blood 128 mg/dL (70-110)
[2024-07-05 20:17] LABS: Glucose,Whole Blood 161 mg/dL (70-110)
[2024-07-05] MEDS: APIXABAN 5 MG TAB PO SCH (20:57)
[2024-07-05] MEDS: traZODone HCL 50 MG TAB PO SCH (20:57)
[2024-07-05] MEDS: METOPROLOL TARTRATE 50 MG TAB PO SCH (20:58)
[2024-07-05] MEDS ORDERED: metFORMIN 500 MG TAB PO SCH (21:00)
[2024-07-06 05:32] LABS: Basophils # (A) 0.02 10*3/uL (0.00-0.10); Basophils % (A) 0.3 %; Eosinophils # (A) 0.18 10*3/uL (0.04-0.35); HCT 35.3 % (37.2-46.3); HGB 11.8 g/dL (12.0-15.0); Lymphocytes # (A) 1.53 10*3/uL (0.90-5.00); Lymphocytes % (A) 25.2 %; MCH 32.6 pg (27.0-32.0); MCHC 33.4 g/dL (32.0-37.0); MCV 97.5 fL (80.0-97.0); Mean Platelet Volume 9.8 fL (9.5-12.2); Monocytes # (A) 0.47 10*3/uL (0.20-1.00); Monocytes % (A) 7.7 %; Neutrophils # (A) 3.86 10*3/uL (1.80-7.70); Neutrophils % (A) 63.6 %; Platelet Count 252 10*3/uL (140-440); RBC 3.62 10*6/uL (4.10-5.20); RDW 12.8 % (11.5-14.5); WBC 6.07 10*3/uL (4.50-10.00)
[2024-07-06 06:00] LABS: African American GFR (CKD) >90 (>60 ml/min/1.73 sqM); Anion Gap 8 mmol/L; Blood Urea Nitrogen 14 mg/dL (7-17); Calcium 9.9 mg/dL (8.4-10.2); Carbon Dioxide 24 mmol/L (22-30); Chloride 105 mmol/L (98-107); Glucose 127 mg/dL (74-99); Magnesium 1.5 mg/dL (1.6-2.3); Non-African American GFR(CKD) 81 (>60 ml/min/1.73 sqM); Potassium 3.9 mmol/L (3.5-5.1); Sodium 137 mmol/L (137-145)
[2024-07-06 06:04] LABS: Glucose,Whole Blood 138 mg/dL (70-110)
[2024-07-06] MEDS: MAGNESIUM SULFATE-D5W PMX 1 GM in DEXTROSE/WATER 1 100ML.BAG IVPB SCH (08:56)
[2024-07-06] MEDS: allopurinoL 100 MG TAB PO SCH (08:57)
[2024-07-06] MEDS: ESCITALOPRAM 10 MG TAB PO SCH (08:57)
[2024-07-06] MEDS: amLODIPine 5 MG TAB PO SCH (08:57)
[2024-07-06] MEDS: LOSARTAN 50 MG TAB PO SCH (08:57)
[2024-07-06] MEDS: ATORVASTATIN 40 MG TAB PO SCH (08:57)
[2024-07-06] MEDS ORDERED: amLODIPine 5 MG TAB PO SCH (09:00)
[2024-07-06] MEDS ORDERED: amLODIPine 10 MG TAB PO SCH (09:00)
--- NOTE | 2024-07-06 11:19 | P.PN ---
Subjective Progress Note Date: 07/06/24 Hospital Course: Patient is a 83-year-old male with vkx-lwsornc-nkgtnoqat diabetes mellitus, history of DVT anticoagulated on Eliquis, hypertension presenting with new onset atrial flutter. Patient states she measured her blood pressure at home and saw that it was elevated at 190/95. She states she has not been feeling well for the past 2 weeks. She has complaint of headache that has been going on for the past month. She states she has felt fatigued and feels foggy. She mentions that she finds it difficult to walk to her mailbox in the morning because she feels so tired. Denies any shortness of breath, PND, orthopnea. Patient's daughter informed that she was mistakenly taken her trazodone in the morning instead of night possibly causing her to feel drowsy during the day. During the interview she denies any headache, vision changes, lightheadedness. In reviewin g her medications she states that some of her blood pressure medications have been adjusted. According to her most current medication list her chlorthalidone and lisinopril have been discontinued.Patient denies any fever, chills, chest pain, abdominal pain, urinary symptoms, any changes in appetite, weight loss. Labs: Troponin < 0.012, magnesium 1.4, glucose 148, Hgb 12.4, INR 1.0, TSH 2.14 Imaging: EKG independently interpreted displaying atrial flutter, rate 74 bpm, QTc 430 MS, low voltage, no ST abnormalities CXR independently interpreted displaying mild pulmonary vascular congestion, sm all bilateral pleural effusion Brain CT displaying stable mild cerebral atrophy and patchy regions of chronic small vessel ischemic disease in the basal ganglia/subinsular regions, no acute abnormality seen Subjective: Patient seen and examined at bedside. No acute events overnight. Patient states she is feels short of breath when she walks to the bathroom. Denies any PND or orthopnea. Pertinent positives and negatives as discussed above, a complete review of [facility] ms was performed and all other systems are negative. Vitals: Signs Reviewed Physical Exam: General: nontoxic, no distress, appears at stated age Derm: warm, dry, intact Head: atraumatic, normocephalic, symmetric Eyes: EOMI, anicteric sclera Mouth: no lip lesion, mucus membranes moist Cardiovascular: S1 S2 reg, no murmur, rubs, or gallops Lungs: CTA bilateral, no rhonchi, no rales, no accessory muscle use Abdominal: soft, non-tender to palpataion, no appreciable organomegaly Extremities: no gross muscle atrophy, no edema, no contractures Neuro: Alert, Oriented, CNII-XII grossly intact, gait normal Psych: well appearing, appropriate affect Data Received Today: Pertinent Labs: Magnesium 1.5, potassium 3.9, Hgb 11.8, MCV 97.5, glucose 81 Imaging: Echocardiogram: Pending Assessment/Plan: Patient is a 83-year-old male with hlf-wlzewyg-wftnobwoj diabetes mellitus, history of DVT anticoagulated on Eliquis, hypertension presenting with hypertensive urgency and suspected new onset afib/aflutter. #. Paroxysmal versus persistent versus permanent atrial fibrillation/atrial flutter, suspect permanent #. Elevated BNP proBNP 1880, patient denies orthopnea, PND, shortness of breath Continue Metropol tartrate 100 mg PO BID Continue Eliquis 5 mg PO BID Monitor electrolytes, keep K > 4, Mg > 2 TSH WNL at 2.14 Cardiac telemetry Echocardiogram pending Strict intake/outtake #. Hypertensive urgency Clonidine 0.1 mg PO TID prn for BP > 180/120 Continue amlodipine 5 mg PO QD Continue w/ losartan to 100 mg daily Echocardiogram as above Continue to monitor BP controlled and echocardiogram is normal patient to be discharged this afternoon #. Hypomagnesia 400 mg PO magnesium oxide given by ED Mg today 1.5 will order magnesium sulfate 4 g IVPB q1hr, repeat Mg #. Tpn-whmgswj-fjxafhjxo diabetes mellitus Insulin sliding scale SQ Accu-Cheks ACHS Monitor for hypoglycemia Hold metformin #. Depression: Lexapro 10 mg PO QD #. Hyperlipidemia: Atorvastatin 40 mg PO QD #. Gout: Allopurinol 100 mg p.o. daily #. History of DVT: Eliquis 5 mg PO BID DVT prophylaxis: Eliquis 5 mg PO BID Code status: Full code Anticipated discharge place: Home Anticipated discharge time: 24-48 hours Aquiles Casey MD PGY-1 IM Dictation was produced using [employer] dictation software. please excuse any grammatical, word or spelling errors. I have seen and evaluated the patient today. Discussed with the resident and agree with the residents finding and plan as documented in the resident's note. Changes highlighted in blue font. Objective - Vital Signs Vital signs: Vital Signs Temp 98.3 F 07/06/24 01:42 Pulse 62 07/06/24 01:42 Resp 16 07/06/24 01:42 BP 143/80 07/06/24 01:42 Pulse Ox 98 07/06/24 01:42 FiO2 Intake & Output 07/05/24 07/06/24 07/06/24 18:59 06:59 18:59 Intake Total 600 Balance 600 Weight 68.039 kg Intake: Oral 600 Other: Voiding Method Toilet # Voids 1 2 - Labs CBC & Chem 7: 07/06/24 05:00 07/06/24 05:00 Labs: Abnormal Lab Results - Last 24 Hours (Table) 07/05/24 07/05/24 07/05/24 Range/Units 09:11 09:11 12:28 RBC 3.83 L (4.10-5.20) 10*6/uL Hgb (12.0-15.0) g/dL Hct 36.9 L (37.2-46.3) % MCV (80.0-97.0) fL MCH 32.4 H (27.0-32.0) pg Chloride 108 H (98-107) mmol/L Glucose 148 H (74-99) mg/dL POC Glucose (mg/dL) 141 H (70-110) mg/dL Magnesium 1.4 L (1.6-2.3) mg/dL 07/05/24 07/05/24 07/06/24 Range/Units 17:01 20:15 05:00 RBC 3.62 L (4.10-5.20) 10*6/uL Hgb 11.8 L (12.0-15.0) g/dL Hct 35.3 L (37.2-46.3) % MCV 97.5 H (80.0-97.0) fL MCH 32.6 H (27.0-32.0) pg Chloride (98-107) mmol/L Glucose (74-99) mg/dL POC Glucose (mg/dL) 128 H 161 H (70-110) mg/dL Magnesium (1.6-2.3) mg/dL 07/06/24 07/06/24 Range/Units 05:00 06:01 RBC (4.10-5.20) 10*6/uL Hgb (12.0-15.0) g/dL Hct (37.2-46.3) % MCV (80.0-97.0) fL MCH (27.0-32.0) pg Chloride (98-107) mmol/L Glucose 127 H (74-99) mg/dL POC Glucose (mg/dL) 138 H (70-110) mg/dL Magnesium 1.5 L (1.6-2.3) mg/dL
[2024-07-06 12:07] LABS: Glucose,Whole Blood 159 mg/dL (70-110)
[2024-07-06 15:44] VITALS: RESP 16
[2024-07-06 17:43] LABS: Glucose,Whole Blood 111 mg/dL (70-110)
[2024-07-06 20:01] LABS: Glucose,Whole Blood 114 mg/dL (70-110)
[2024-07-07 06:31] LABS: Glucose,Whole Blood 161 mg/dL (70-110)
[2024-07-07 07:01] LABS: Basophils # (A) 0.04 10*3/uL (0.00-0.10); Basophils % (A) 0.6 %; Eosinophils # (A) 0.25 10*3/uL (0.04-0.35); Eosinophils % (A) 3.5 %; HCT 37.4 % (37.2-46.3); HGB 12.4 g/dL (12.0-15.0); Lymphocytes % (A) 22.2 %; MCH 32.5 pg (27.0-32.0); MCHC 33.2 g/dL (32.0-37.0); MCV 97.9 fL (80.0-97.0); Mean Platelet Volume 9.9 fL (9.5-12.2); Monocytes # (A) 0.62 10*3/uL (0.20-1.00); Monocytes % (A) 8.6 %; Neutrophils # (A) 4.67 10*3/uL (1.80-7.70); Neutrophils % (A) 64.8 %; Platelet Count 284 10*3/uL (140-440); RBC 3.82 10*6/uL (4.10-5.20); RDW 12.8 % (11.5-14.5)
[2024-07-07 07:25] LABS: African American GFR (CKD) 74 (>60 ml/min/1.73 sqM); Anion Gap 8 mmol/L; Blood Urea Nitrogen 15 mg/dL (7-17); Calcium 9.7 mg/dL (8.4-10.2); Carbon Dioxide 26 mmol/L (22-30); Chloride 104 mmol/L (98-107); Glucose 157 mg/dL (74-99); Non-African American GFR(CKD) 64 (>60 ml/min/1.73 sqM); Sodium 138 mmol/L (137-145)
[2024-07-07 08:25] VITALS: BP 158/72; PULSE 62; TEMP 98.1
--- NOTE | 2024-07-07 09:55 | CA ---
Transthoracic Echo Report Name: Sultana Aiken Age: 83 Gender: F : 1940 Exam Date: 07/06/2024 07:54 Exam Location: [facility] Ht (in): 60 Wt (lb): 150 Ordering Physician: Jose Manuel Bautista MD Attending/Referring Phys: Coffee Attendant Johnny Martinez, JESSE Procedure CPT: Indications: elevated BNP, atrial flutter, cardiomegaly Cardiac Hx: DVT, HTN, Diabetes Technical Quality: Good Contrast 1: Total Dose (mL): Contrast 2: Total Dose (mL): MEASUREMENTS (Male / Female) Normal Values 2D ECHO LV Diastolic Diameter PLAX 3.6 cm 4.2 - 5.9 / 3.9 - 5.3 cm LV Systolic Diameter PLAX 2.4 cm IVS Diastolic Thickness 1.2 cm 0.6 - 1.0 / 0.6 - 0.9 cm LVPW Diastolic Thickness 1.2 cm 0.6 - 1.0 / 0.6 - 0.9 cm LV Relative Wall Thickness 0.7 RV Internal Dim ED PLAX 3.7 cm LVOT Diameter 1.6 cm Aortic Root Diameter 2.6 cm LA Systolic Diameter LX 4.3 cm 3.0 - 4.0 / 2.7 - 3.8 cm LA Volume 108.8 cm??? 18 - 58 / 22 - 52 cm??? LA Volume Index 63.2 cm???/m??? 16 - 28 cm???/m??? DOPPLER AI Peak Velocity 363.0 cm/s AI Peak Gradient 52.7 mmHg MV Peak Velocity 200.8 cm/s MV Peak Gradient 16.1 mmHg MV Mean Velocity 96.9 cm/s MV Mean Gradient 5.7 mmHg MV Velocity Time Integral 34.4 cm MV Area PHT 3.6 cm??? TR Peak Velocity 408.4 cm/s TR Peak Gradient 66.7 mmHg Right Atrial Pressure 5.0 mmHg Pulmonary Artery Systolic Pressu 71.7 mmHg Right Ventricular Systolic Press 71.7 mmHg FINDINGS Left Ventricle Left ventricular ejection fraction is estimated at 60-65%. Mild concentric left ventricular hypertrophy. Normal left ventricular systolic function with no obvious regional wall motion abnormalities. Right Ventricle Mild right ventricular dilatation. Severe pulmonary hypertension. Right ventricular systolic pressure estimated at 62 mm hg. Right Atrium Moderate right atrial dilatation. Left Atrium Mildly increased left atrial diameter. Severely increased left atrial volume. Mildly increased left atrial area. Mitral Valve Mitral annular calcification. No mitral stenosis. Mild mitral regurgitation. Aortic Valve Trileaflet aortic valve. Thickened aortic valve without stenosis. Mild-to- moderate aortic regurgitation. Tricuspid Valve Structurally normal tricuspid valve. No tricuspid stenosis. Cjle-tv-yshdkkef tricuspid regurgitation. Pulmonic Valve Structurally normal pulmonic valve. No pulmonic stenosis. Trace pulmonic regurgitation. Pericardium No pericardial effusion. Aorta Aortic annulus normal. CONCLUSIONS LV function is normal. Right ventricle is mildly elevated with significantly elevated pulmonary pressures. There is mild to moderate mitral and tricuspid regurgitation. Mild to moderate aortic regurgitation. Aortic valve sclerosis without significant stenosis. Mitral annular calcification. No pericardial effusion Previewed by: Dr. Speedy Virgen MD (Electronically Signed) Final Date: 07 Jul 2024 09:54
--- NOTE | 2024-07-07 15:23 | P.DS ---
Providers Date of admission: 07/05/24 10:28 Discharge Diagnosis: permanent atrial fibrillation/atrial flutter Severe pulmonary hypertension Elevated BNP Hypertensive urgency Hypomagnesia Wjc-anlwxgd-mgysfolvx diabetes mellitus Depression Hyperlipidemia Gout history of DVT on Eliquis Hospital Course: Patient is a 83-year-old male with ttm-gabxogp-pbtcwnaqv diabetes mellitus, history of DVT anticoagulated on Eliquis, hypertension presenting with new onset atrial flutter. Patient states she measured her blood pressure at home and saw that it was elevated at 190/95. She states she has not been feeling well for the past 2 weeks. She has complaint of headache that has been going on for the past month. She states she has felt fatigued and feels foggy. She mentions that she finds it difficult to walk to her mailbox in the morning because she feels so tired. Denies any shortness of breath, PND, orthopnea. Patient's daughter informed that she was mistakenly taken her trazodone in the morning instead of night possibly causing her to feel drowsy during the day. During the interview she denies any headache, vision changes, lightheadedness. In reviewing her medications she states that some of her blood pressure medications have been adjusted. According to her most current medication list her chlorthalidone and lisinopril have been discontinued.Patient denies any fever, chills, chest pain, abdominal pain, urinary symptoms, any changes in appetite, weight loss. Labs: Troponin < 0.012, magnesium 1.4, glucose 148, Hgb 12.4, INR 1.0, TSH 2.14 Imaging: EKG independently interpreted displaying atrial flutter, rate 74 bpm, QTc 430 MS, low voltage, no ST abnormalities CXR independently interpreted displaying mild pulmonary vascular congestion, small bilateral pleural effusion Brain CT displaying stable mild cerebral atrophy and patchy regions of chronic small vessel ischemic disease in the basal ganglia/subinsular regions, no acute abnormality seen Admitted for further evaluation of new onset atrial fibrillation and hypertensive urgency. Upon further review patient had a previous EKG of atrial fibrillation. While admitted, adjustments were made for her antihypertensive medications. Patient's blood pressure improved and better controlled. Echocardiogram was ordered for elevated BNP. Echocardiogram showed normal LV function, right ventricle mildly elevated with significantly elevated pulmonary pressures, mild to moderate mitral tricuspid regurgitation, mild to moderate aortic regurgitation, aortic valve sclerosis without significant stenosis, mitral annular calcification, no pericardial effusion, EF 60-65%. Patient is hemodynamically stable. She will be discharged with the changes in her antihypertensive medication for optimal blood pressure. She will follow-up with her PCP. She can be discharged home today. Patient seen and examined at bedside. Vital signs reviewed and stable. Physical examination: Vital signs reviewed General: non toxic, no distress, appears at stated age, normal weight Derm: no unusual rashes/lesions, warm Head: atraumatic, normocephalic, symmetric Eyes: EOMI, anicteric sclera, pupils equal round reactive to light ENT: Nose and ears atraumatic Neck: No cervical lymphadenopathy, trachea midline, supple Mouth: no lip lesion, mucus membranes moist Cardiovascular: S1S2 reg, no murmur, positive dorsalis pedis pulse bilateral, no edema Lungs: CTA bilateral, no rhonchi, no rales, no accessory muscle use Abdominal: soft, nontender to palpation, no guarding Ext: muscle strength 5 out of 5 in all 4 extremities grossly, no gross muscle atrophy Neuro: CN II-XI grossly intact, no gross focal neuro deficits Psych: Alert, oriented to person, place, and time A total of greater than 30 minutes of time were spent preparing this complex discharge summary. Patient was discharge on Jul 07 2024 at 1028 Aquiles Casey MD PGY-1 IM Dictation was produced using [employer] dictation software. please excuse any grammatical, word or spelling errors. I have seen and evaluated the patient today. Discussed with the resident and agree with the residents finding and plan as documented in the resident's note. Changes highlighted in blue font. Expected date of discharge: 07/07/24 Attending physician: Jose Manuel Bautista MD Primary care physician: Rayo Banerjee Patient Condition at Discharge: Stable Plan - Discharge Summary Discharge Rx Participant: No New Discharge Prescriptions: New Atorvastatin [Lipitor] 40 mg PO DAILY #90 tab Losartan [Cozaar] 100 mg PO DAILY #60 tab amLODIPine 10 mg PO DAILY #90 tab Continue traZODone HCL [Desyrel] 25 mg PO HS metFORMIN HCL 500 mg PO BID Escitalopram [Lexapro] 10 mg PO DAILY allopurinoL 100 mg PO DAILY Metoprolol Tartrate [Lopressor] 100 mg PO BID Apixaban [Eliquis] 5 mg PO BID Discontinued amLODIPine/ATORVASTATIN [amLODIPine/ATORVASTATIN 5-40 MG] 1 tab PO DAILY lisinopriL 40 mg PO DAILY Chlorthalidone [Thalitone] 15 mg PO DAILY Discharge Medication List Apixaban [Eliquis] 5 mg PO BID 07/05/24 [History] Escitalopram [Lexapro] 10 mg PO DAILY 07/05/24 [History] Metoprolol Tartrate [Lopressor] 100 mg PO BID 07/05/24 [History] allopurinoL 100 mg PO DAILY 07/05/24 [History] metFORMIN HCL 500 mg PO BID 07/05/24 [History] traZODone HCL [Desyrel] 25 mg PO HS 07/05/24 [History] Atorvastatin [Lipitor] 40 mg PO DAILY #90 tab 07/07/24 [Rx] Losartan [Cozaar] 100 mg PO DAILY #60 tab 07/07/24 [Rx] amLODIPine 10 mg PO DAILY #90 tab 07/07/24 [Rx] Follow up Appointment(s)/Referral(s): Rayo Banerjee MD [Primary Care Provider] - 1-2 days Patient Instructions/Handouts: Atrial Flutter (DC) Activity/Diet/Wound Care/Special Instructions: Please see PCP. Discharge Disposition: HOME SELF-CARE
== END 2024-07-07 11:00 | disposition home or self-care (01) ==
LOC: EC 08:29 → 6NMEDSUR 10:28
PROVIDERS: ADMIT Internal Medicine; ATTEND Internal Medicine
DX: I48.21 Permanent atrial fibrillation (principal); I48.92 Unspecified atrial flutter; I16.0 Hypertensive urgency; I27.20 Pulmonary hypertension, unspecified; I08.3 Combined rheumatic disorders of mitral, aortic and tricuspid valves; E83.42 Hypomagnesemia; E78.5 Hyperlipidemia, unspecified; M10.9 Gout, unspecified; R79.89 Other specified abnormal findings of blood chemistry; E11.9 Type 2 diabetes mellitus without complications; I10 Essential (primary) hypertension; G43.909 Migraine, unspecified, not intractable, without status migrainosus; F32.A Depression, unspecified; Z79.01 Long term (current) use of anticoagulants; Z79.84 Long term (current) use of oral hypoglycemic drugs; Z79.899 Other long term (current) drug therapy; Z88.8 Allergy status to other drugs, medicaments and biological substances; Z86.718 Personal history of other venous thrombosis and embolism
CPT/HCPCS: 96365; 96366; 99285; 36415; 93005; 93306; 83880; 80053; 80048 ×2; 84443; 83735 ×3; 84484; 85025 ×3; 85610; 85730; 71046; 70450; G0378 ×3; J3475